=== PATIENT | female | born 1990 | race African-American/Black ===

== ENCOUNTER 2017-08-06 17:30 | Observation (INO) | payer OTHER ==
[~2017-08-06] VITALS: Ht 162.6 cm; Wt 80.3 kg
[2017-08-06] MEDS ORDERED: PNV1TABL76 PO (18:29)
[2017-08-06] MEDS ORDERED: ACETAMINOPHEN 500MG TABLET PO NR (18:30)
[2017-08-06] MEDS: LACTATED RINGERS 1,000 ML IV SCH ×2 (18:35→21:21)
[2017-08-06 20:02] LABS: CLARITY URINE CLEAR (CLEAR); COLOR URINE YELLOW (YELLOW); GLUCOSE URINE NEGATIVE (NEGATIVE); KETONES URINE TRACE (NEGATIVE); LEUKOCYTE ESTERASE URINE 2+ (NEGATIVE); NITRITE URINE NEGATIVE (NEGATIVE); OCCULT BLOOD URINE NEGATIVE (NEGATIVE); PH URINE 6.5 (4.5-8.0); PROTEIN URINE NEGATIVE (NEGATIVE); SPECIFIC GRAVITY URINE 1.032 (1.005-1.030)
[2017-08-06] MEDS ORDERED: CEFAZOLIN 2,000 MG in DEXT 5% WATER 100 ML IV NR (22:00)
== END 2017-08-06 22:20 | disposition home or self-care (01) ==
LOC: L&D 17:30
PROVIDERS: ADMIT Obstetrics & Gynecology; ATTEND Obstetrics & Gynecology
DX: O26.893 Other specified pregnancy related conditions, third trimester (principal); R10.9 Unspecified abdominal pain; Z3A.30 30 weeks gestation of pregnancy
CPT/HCPCS: 81001; 96365; 99281; G0378; J0690; J7120; 96360; 96361; J7060